=== PATIENT | male | born 1985 | race Caucasian/White ===

== ENCOUNTER 2017-10-16 12:03 | Emergency (ER) | payer OTHER ==
[2017-10-16] MEDS ORDERED: IPRATROPIUM-ALBUTEROL 3 ML NEB INHALATION STA (12:08)
[2017-10-16 12:10] VITALS: RESP 18
--- NOTE | 2017-10-16 12:38 | ED ---
General Adult HPI - General Stated complaint: overdose Time Seen by Provider: 10/16/17 12:08 Source: patient, EMS Mode of arrival: EMS Limitations: no limitations - History of Present Illness Initial comments: 31-year-old male presents emergency Department chief complaint of heroin overdose. Patient uses heroin states that he recently got a rehab. Patient states that he has overdose in the past and has Narcan but he did not have any. There was another person the house that the room in the shower to try to wake him up. Patient was given 2 mg Narcan by EMS 20 minutes prior arrival. Patient has no complaints at this time. Patient denies suicidal or homicidal ideation. Denies any physical complaints. Patient is a smoker and has asthma. - Related Data Home Medications Medication Instructions Recorded Confirmed No Known Home Medications 03/27/16 03/27/16 Allergies Allergy/AdvReac Type Severity Reaction Status Date / Time No Known Allergies Allergy Verified 03/27/16 13:17 Review of Systems ROS Statement: Those systems with pertinent positive or pertinent negative responses have been documented in the HPI. ROS Other: All systems not noted in ROS Statement are negative. Past Medical History Past Medical History: No Reported History History of Any Multi-Drug Resistant Organisms: None Reported Past Surgical History: No Surgical Hx Reported Past Psychological History: No Psychological Hx Reported Smoking Status: Current every day smoker Past Alcohol Use History: None Reported Past Drug Use History: Heroin General Exam General appearance: alert, in no apparent distress Head exam: Present: atraumatic, normocephalic, normal inspection Eye exam: Present: normal appearance, PERRL, EOMI. Absent: scleral icterus, conjunctival injection, periorbital swelling ENT exam: Present: normal exam, normal oropharynx, mucous membranes moist Neck exam: Present: normal inspection. Absent: tenderness, meningismus, lymphadenopathy Respiratory exam: Present: wheezes. Absent: normal lung sounds bilaterally, respiratory distress, rales, rhonchi, stridor Cardiovascular Exam: Present: regular rate, normal rhythm, normal heart sounds. Absent: systolic murmur, diastolic murmur, rubs, gallop, clicks Course Vital Signs 10/16/17 10/16/17 12:05 12:23 Temperature 100.4 F H Pulse Rate 95 84 Respiratory 18 18 Rate Blood Pressure 143/72 O2 Sat by Pulse 97 Oximetry Medical Decision Making - Medical Decision Making 31-year-old male presented from for heroin overdose. Patient has been monitored for 45 minutes and he was given Narcan 20 minutes prior arrival. Patient is stable has no complaints she was given a breathing treatment for his asthma. Patient is requesting discharge does understand risk of leaving at this time. Disposition Clinical Impression: Heroin overdose Disposition: HOME SELF-CARE Condition: Stable Instructions: Opioid Overdose (ED) Additional Instructions: Please return to the Emergency Department if symptoms worsen or any other concerns. Is patient prescribed a controlled substance at d/c from ED?: No Referrals: None,Stated [Primary Care Provider] - 1-2 days Time of Disposition: 12:38
[2017-10-16 12:42] VITALS: BP 136/59; PULSE 114; TEMP 97.9
== END 2017-10-16 12:44 | disposition home or self-care (01) ==
LOC: EC 12:03
DX: T40.1X1A Poisoning by heroin, accidental (unintentional), initial encounter (principal); J45.909 Unspecified asthma, uncomplicated; F17.200 Nicotine dependence, unspecified, uncomplicated
CPT/HCPCS: 94640; 99284

== ENCOUNTER 2017-12-29 16:06 | Inpatient (IN) | payer MEDICAID, OTHER ==
--- NOTE | 2017-12-29 16:23 | ED ---
General Adult HPI - General Chief complaint: Psychiatric Symptoms Stated complaint: mental health/hallucinations Time Seen by Provider: 12/29/17 16:06 Source: patient, RN notes reviewed Mode of arrival: ambulatory Limitations: no limitations - History of Present Illness Initial comments: This is a 32-year-old male with past medical history significant for one previous suicide attempt. Patient also admits to drinking heroin in the past and methamphetamine. Patient states he hasn't used any drugs last 2 days and hasn't drank last 2 days. Patient states his girlfriend was cheating on so over the last 2 days she's been thinking about killing himself and he doesn't think go on at this point without hurting himself. Patient would like to be admitted to psych [facility]. Patient denies any physical complaints today. Patient denies headache patient denies chest pain patient denies abdominal pain. Patient denies any recent fever chills or cough. - Related Data Home Medications Medication Instructions Recorded Confirmed Albuterol Inhaler [Ventolin Hfa 2 puff INHALATION RT-Q6H PRN 12/29/17 12/29/17 Inhaler] Allergies Allergy/AdvReac Type Severity Reaction Status Date / Time No Known Allergies Allergy Verified 12/29/17 16:15 Review of Systems ROS Statement: Those systems with pertinent positive or pertinent negative responses have been documented in the HPI. ROS Other: All systems not noted in ROS Statement are negative. Past Medical History Past Medical History: No Reported History History of Any Multi-Drug Resistant Organisms: None Reported Past Surgical History: No Surgical Hx Reported Past Psychological History: No Psychological Hx Reported Smoking Status: Current every day smoker Past Alcohol Use History: None Reported Past Drug Use History: Heroin General Exam - General Exam Comments Initial Comments: GENERAL: Patient is well-developed and well-nourished. Patient is nontoxic and well- hydrated and is in no acute distress. ENT: Neck is soft and supple. No significant lymphadenopathy is noted. Oropharynx is clear. Moist mucous membranes. Neck has full range of motion without eliciting any pain. EYES: The sclera were anicteric and conjunctiva were pink and moist. Extraocular movements were intact and pupils were equal round and reactive to light. Eyelids were unremarkable. PULMONARY: Unlabored respirations. Good breath sounds bilaterally. No audible rales rhonchi or wheezing was noted. CARDIOVASCULAR: There is a regular rate and rhythm without any murmurs gallops or rubs. Patient states he suicidal ABDOMEN: Soft and nontender with normal bowel sounds. No palpable organomegaly was noted. There is no palpable pulsatile mass. SKIN: Skin is clear with no lesions or rashes and otherwise unremarkable. NEUROLOGIC: Patient is alert and oriented x3. Cranial nerves II through XII are grossly intact. Motor and sensory are also intact. Normal speech, volume and content. Symmetrical smile. MUSCULOSKELETAL: Normal extremities with adequate strength and full range of motion. No lower extremity swelling or edema. No calf tenderness. LYMPHATICS: No significant lymphadenopathy is noted PSYCHIATRIC: Patient states she suicidal. Limitations: no limitations Course Vital Signs 12/29/17 16:09 Temperature 98.0 F Pulse Rate 74 Respiratory 20 Rate Blood Pressure 125/87 O2 Sat by Pulse 98 Oximetry Medical Decision Making - Lab Data Lab Results 12/29/17 Range/Units Unknown Urine Opiates Screen Not Detected (NotDetected) Ur Oxycodone Screen Not Detected (NotDetected) Urine Methadone Screen Not Detected (NotDetected) Ur Propoxyphene Screen Not Detected (NotDetected) Ur Barbiturates Screen Not Detected (NotDetected) U Tricyclic Antidepress Not Detected (NotDetected) Ur Phencyclidine Scrn Not Detected (NotDetected) Ur Amphetamines Screen Not Detected (NotDetected) U Methamphetamines Scrn Not Detected (NotDetected) U Benzodiazepines Scrn Not Detected (NotDetected) Urine Cocaine Screen Detected H (NotDetected) U Marijuana (THC) Screen Detected H (NotDetected) Disposition Clinical Impression: Depression, Suicidal ideation, Drug abuse Disposition: TRANSFER TO PSYCH HOSP/UNIT Referrals: None,Stated [Primary Care Provider] - 1-2 days Time of Disposition: 18:59
[2017-12-29 16:46] LABS: Amphetamine Screen,Urine Not Detected (NotDetected); Barbiturate Screen,Urine Not Detected (NotDetected); Benzodiazepines Screen,Urine Not Detected (NotDetected); Cocaine Screen,Urine Detected (NotDetected); Methadone Screen, Urine Not Detected (NotDetected); Opiate Screen,Urine Not Detected (NotDetected); Oxycodone Screen, Urine Not Detected (NotDetected); Phencyclidine Screen,Urine Not Detected (NotDetected); Tricyclic Antidepressant,Urine Not Detected (NotDetected); Urn Cannabinoid Scrn Detected (NotDetected)
[2017-12-29 21:28] LABS: Basophils % (A) 1 %; Eosinophils # (A) 0.3 k/uL (0-0.7); Eosinophils % (A) 5 %; HCT 44.5 % (39.0-53.0); HGB 15.5 gm/dL (13.0-17.5); Lymphocytes # (A) 2.6 k/uL (1.0-4.8); Lymphocytes % (A) 43 %; MCH 28.4 pg (25.0-35.0); MCHC 34.8 g/dL (31.0-37.0); MCV 81.6 fL (80.0-100.0); Mean Platelet Volume 6.5; Monocytes # (A) 0.3 k/uL (0-1.0); Monocytes % (A) 4 %; Neutrophils # (A) 2.7 k/uL (1.3-7.7); Neutrophils % (A) 44 %; Platelet Count 280 k/uL (150-450); RBC 5.45 m/uL (4.30-5.90); RDW 13.2 % (11.5-15.5); WBC 6.1 k/uL (3.8-10.6)
[2017-12-29 21:29] LABS: Amorphous Sediment,Urine Few /hpf; Appearance,Urine Turbid (Clear); Bilirubin,Urine Negative (Negative); Blood,Urine Negative (Negative); Color,Urine Yellow; Glucose,Urine (UA) Negative (Negative); Ketones,Urine Negative (Negative); Leukocyte Esterase,Urine Negative (Negative); Mucus,Urine Moderate /hpf; Nitrite,Urine Negative (Negative); PH, Urine 7.5 (5.0-8.0); Protein,Urine Trace (Negative); Specific Gravity,Urine 1.021 (1.001-1.035)
[2017-12-29 21:44] LABS: ALT 27 U/L (21-72); AST 24 U/L (17-59); Albumin 4.1 g/dL (3.5-5.0); Alkaline Phosphatase 50 U/L (38-126); Anion Gap 10 mmol/L; Blood Urea Nitrogen 17 mg/dL (9-20); Calcium 9.6 mg/dL (8.4-10.2); Carbon Dioxide 26 mmol/L (22-30); Chloride 105 mmol/L (98-107); Glucose 97 mg/dL (74-99); Potassium 4.1 mmol/L (3.5-5.1); Sodium 141 mmol/L (137-145); Total Protein 7.4 g/dL (6.3-8.2)
[2017-12-30] MEDS ORDERED: IPRATROPIUM-ALBUTEROL 3 ML NEB INHALATION STA (11:06)
[2017-12-30] MEDS ORDERED: ACETAMINOPHEN TAB 325 MG TAB PO PRN (15:05)
[2017-12-30] MEDS ORDERED: ZIPRASIDONE 20 MG VIAL IM PRN (15:05)
[2017-12-30] MEDS ORDERED: MAG HYDROX/AL HYDROX/SIMETH 30 ML CUP PO PRN (15:05)
[2017-12-30] MEDS ORDERED: MAGNESIUM HYDROXIDE 2,400 MG/10 ML CUP PO PRN (15:05)
[2017-12-30] MEDS ORDERED: LORazepam 1 MG TAB PO PRN (15:05)
[2017-12-30] MEDS ORDERED: LORazepam 2 MG/ML INJ IM PRN (15:08)
[2017-12-30 15:38] VITALS: BMI 25.0
--- NOTE | 2017-12-30 18:42 | P.CONS ---
History of Present Illness - Reason for Consult Consult date: 12/30/17 - Chief Complaint Depression - History of Present Illness Patient is a 32-year-old male with a past medical history of asthma, substance abuse, and depression (hx of one suicide attempt) presented to the ED due to concern that he may harm himself. The patient notes that he began using methamphetamine 10 days for the first time and used continuously for 7 days during which time he lost 17 lbs and found himself in dangerous situations. He last used on 12/27/17. He notes that his problems with his girlfriend were the trigger. He previously used heroin several years ago and notes that he doesn't use any other substances, drink alcohol or use tobacco. Patient notes his last asthma exacerbation was several years ago and he doesn't use any inhalers. He otherwise denied dizziness, headache, cough, chest pain, SOB, fever, nausea, vomiting, diarrhea, constipation, recent travel, or sick contacts. In the ED, the patient's urine drug screen tested positive for Cocaine and Marijuana, though the patient denied ever having used them. Review of Systems All pertinent positives and negatives as per HPI w/ remaining ROS performed and negative Past Medical History Past Medical History: Asthma History of Any Multi-Drug Resistant Organisms: None Reported Past Surgical History: No Surgical Hx Reported Past Anesthesia/Blood Transfusion Reactions: No Reported Reaction Past Psychological History: No Psychological Hx Reported Smoking Status: Current every day smoker Past Alcohol Use History: None Reported Past Drug Use History: Heroin, Marijuana, Methamphetamine Medications and Allergies Home Medications Medication Instructions Recorded Confirmed Type Albuterol Inhaler [Ventolin Hfa 2 puff INHALATION RT-Q6H PRN 12/29/17 12/29/17 History Inhaler] Allergies Allergy/AdvReac Type Severity Reaction Status Date / Time No Known Allergies Allergy Verified 12/29/17 16:15 Physical Exam Vitals: Vital Signs Temp Pulse Pulse Resp BP BP Pulse Ox 12/30/17 15:33 97.1 F L 75 18 112/75 12/30/17 13:40 72 18 105/58 98 12/30/17 12:55 97.9 F 12/30/17 11:34 68 12/30/17 11:25 64 12/30/17 07:32 64 18 108/64 98 Intake and Output 12/30/17 12/30/17 12/30/17 06:59 14:59 22:59 Other: Weight 72.348 kg General: non toxic, no distress, appears at stated age, normal weight Derm: no unusual rashes/lesions no unusual ecchymoses, warm, dry Head: atraumatic, normocephalic, symmetric Eyes: Strabismus, no lid lag, anicteric sclera, pupils equal round reactive to light ENT: Nose and ears atraumatic, no thrush, no pharyngeal erythema Neck: No thyromegaly, no cervical lymphadenopathy, trachea midline, supple Mouth: no lip lesion, mucus membranes moist Cardiovascular: S1S2 reg, no murmur, positive posterior tibial pulse bilateral, no edema, capillary refill less than 2 seconds Lungs: CTA bilateral, no rhonchi, no rales , no accessory muscle use Abdominal: soft, nontender to palpation, no guarding, no appreciable organomegaly, normal bowel sounds Ext: no gross muscle atrophy, muscle strength 5 out of 5 in all 4 extremities grossly, no contractures, Neuro: CN II-XI grossly intact, light touch intact all 4 extremities, finger to nose within normal limits, Psych: Alert, oriented, appropriate affect Results CBC & Chem 7: 12/29/17 20:53 12/29/17 20:53 Labs: Abnormal Lab Results - Last 24 Hours (Table) 12/29/17 Range/Units Unknown Urine Protein Trace H (Negative) Amorphous Sediment Few H (None) /hpf Urine Mucus Moderate H (None) /hpf Assessment and Plan Plan: Substance abuse - Methamphetamine, Cocaine, Marijuana, alcohol use - Place patient on [facility] protocol - Monitor for signs of withdrawal - Ativan prn Depression - Treatment as per psych Low risk for DVT since patient is ambulatory. Thank you for allowing us to participate in the care of this patient. We will follow peripherally. Do not hesitate to contact us with questions. Someone can be reached from the [facility] hospitalist group at all hours of the day at [phone].
[2017-12-31] MEDS ORDERED: NICOTINE 21MG/24HR PATCH TRANSDERM SCH (09:00)
[2017-12-31] MEDS: ALBUTEROL INHALER 60 PUFF/8 GM INHALER INHALATION PRN (09:13)
--- NOTE | 2017-12-31 13:53 | P.HP ---
Psychiatric H&P - . H&P Date: 12/31/17 History & Physical: IDENTIFYING DATA: Ji is a 32-year-old single [place]ian male admitted to psychiatric unit voluntarily. HISTORY OF PRESENT ILLNESS: His sponsor brought him to emergency room concerned about recent relapse to methamphetamine, suicidal ideation and a plan to overdose on drugs. He relapsed last month when he discovered that his girlfriend had an affair. 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 When he returned home he is discovered the affair. He left their home to live with a friend with the intention of using heroin. He stated that neither he nor his friend could find heroin and began using methamphetamine instead. He was injecting methamphetamine "about twice a day" until earlier this week. He spoke to his Narcotics Anonymous sponsor and discussed his relapse, depression and thoughts of suicide. He continues to feel helpless and hopeless and distressed over the breakup of relationship. He feels guilty and ruminates over his past errors. He stated that he is angry and disappointed with his girlfriend but understands her behavior. He talked about having an affair himself when they had briefly year ago. He described thoughts of suicide but denied intent or plan. He described early, middle and late insomnia, difficulty with concentration and attention, and persistent tension and nervousness and lack of appetite. He ruminates about the relationship, her infertility and her future. He did not express to obsessions or compulsions. He denied a history of elevated mood or sustained irritability outside of substance abuse consistent with cici or hypomania. He denied psychotic symptoms such as hallucinations or thought disturbances. He denied feelings of suspiciousness and paranoia. PAST PSYCHIATRIC HISTORY: He had one prior psychiatric admission to the [facility] in [place] 2003 following a suicide attempt. He alleged she was diagnosed with a "bipolar depression". He stopped treatment after the of his mother in 2005. PAST MEDICAL HISTORY: He denied history of major medical illnesses. Has a history of heroin overdoses including 2 admissions to our emergency room for the treatment of heroin and overdose. His BAL on presentation to the ER was 0. His UDS was positive for cocaine and marijuana. ALLERGIES: NO KNOWN DRUG ALLERGIES. SUBSTANCE USE HISTORY:. He started using marijuana in adolescence. He stated that he only used marijuana until the overdose of his mother. After his mother he began using Vicodin and other oral opiate medications. He he progressed to heroin and has been heroin injecting heroin since approximately 2007. He had one brief residential treatment at [facility]. He is involved in outpatient substance abuse treatment, and Narcotics Anonymous. He has a sponsor in Narcotics Anonymous. He has used other drugs including alcohol, cocaine and methamphetamine but identifies as heroin as his primary drug of choice. He has been abstinent from heroin for about one year. He has not been involved in a methadone treatment program or prescribe Suboxone for the treatment of heroin dependence. FAMILY PSYCHIATRIC/SUBSTANCE USE HISTORY: Both his mother and father had history of substance use problems. His mother from a heroin overdose. His father had history of abuse of alcohol, heroin and cocaine. LEGAL HISTORY: He is not on probation, parole or has pending charges. He is had past felony charges for breaking and entry, an armed robbery and larceny. He was in jail on 2 occasions. SOCIAL HISTORY: He was born and raised in [facility]. His mother was [place] his father was . He had one brother and one sister. His brother was murdered in 2000. His mother and father had history of substance use problems. He is single and has no children. He is close to a sister and his nephews. He is employed with a construction company. MENTAL STATUS EXAM: He presented as a casually groomed then balding 32-year-old [place]ian male. He made eye contact and attended to the interview. He had multiple tattoos and a "lazy" right eye. He had a anxious facial expression. He was alert and oriented to person, place and time. He showed psychomotor retardation but no abnormal movements. He had a slow but steady gait. His speech was spontaneous with normal rate, rhythm and volume. He had no articulation difficulties. His affect was dysphoric consisting of mixture of anxiety, depression and anger. His affect was appropriate and controlled. He denied current suicidal ideation or wishes. He denied homicidal ideation. He denied such depressive cognitions as hopelessness, helplessness and worthlessness. He ruminated about his girlfriend's infidelity and is relapsed to use of drugs. He did not express phobias, ideas reference, paranoid ideation or delusions. His thinking was abstract and associations were coherent, logical and goal directed. He did not demonstrate clang associations, delusions or paranoid ideation. He denied hallucinations and did not appear to be responding to internal stimuli. Global impression of intellect is average. He is aware of his illness and need for mental health and substance use treatment. STRENGTHS: Good physical health, stable employment, involvement with Narcotics Anonymous, able to maintain long-term stable relationships. WEAKNESSES: Substance use problems, recent breakup of long-term relationship. IMPRESSION: Is a 32-year-old single [place]ian male who presented to the emergency room with complaints of suicidal ideation the context of a breakup of a long-term relationship a relapse to drugs. He has a long history of a opiate use disorder and has been abstinent from heroin for about one year. He relapsed to methamphetamine and cocaine after breakup of a long-term relationship. He complains of feeling depressed and has some symptoms of a depressive disorder. The mood state may be related to the recent use and recovery from methamphetamine and cocaine but also may be due to an independent mood disorder. There is no history suggestive of cici or hypomania. There is no evidence of psychosis. He should be treated briefly an inpatient basis and then transition to outpatient mental health and substance abuse treatment. PRINCIPLE DIAGNOSIS: Unspecified depressive disorder, methamphetamine use disorder, cocaine use disorder, heroin use disorder, rule out major depressive disorder RECOMMENDATION: Admitted to the psychiatric unit. Safety precautions. Consult medicine for initial physical exam and medical history. emergency worker completed initial psychosocial assessment. Begin Zoloft 50 mg daily and titrated according to clinical response and tolerance. Discuss aftercare services including interest and/or motivation for substance abuse treatment services. Encourage participation in therapeutic groups and activities. Evaluate clinical status response to treatment daily basis. Allergies Allergy/AdvReac Type Severity Reaction Status Date / Time No Known Allergies Allergy Verified 12/29/17 16:15 Vital Signs Temp 97.1 F L 12/30/17 15:33 Pulse 53 L 12/31/17 07:07 Resp 18 12/31/17 07:07 BP 108/59 12/31/17 07:07 Pulse Ox 97 12/31/17 07:07 Intake & Output 12/30/17 12/31/17 12/31/17 18:59 06:59 18:59 Weight 72.348 kg Laboratory Last Values WBC 6.1 k/uL (3.8-10.6) 12/29/17 20:53 RBC 5.45 m/uL (4.30-5.90) 12/29/17 20:53 Hgb 15.5 gm/dL (13.0-17.5) 12/29/17 20:53 Hct 44.5 % (39.0-53.0) 12/29/17 20:53 MCV 81.6 fL (80.0-100.0) 12/29/17 20:53 MCH 28.4 pg (25.0-35.0) 12/29/17 20:53 MCHC 34.8 g/dL (31.0-37.0) 12/29/17 20:53 RDW 13.2 % (11.5-15.5) 12/29/17 20:53 Plt Count 280 k/uL (150-450) 12/29/17 20:53 Neutrophils % 44 % 12/29/17 20:53 Lymphocytes % 43 % 12/29/17 20:53 Monocytes % 4 % 12/29/17 20:53 Eosinophils % 5 % 12/29/17 20:53 Basophils % 1 % 12/29/17 20:53 Neutrophils # 2.7 k/uL (1.3-7.7) 12/29/17 20:53 Lymphocytes # 2.6 k/uL (1.0-4.8) 12/29/17 20:53 Monocytes # 0.3 k/uL (0-1.0) 12/29/17 20:53 Eosinophils # 0.3 k/uL (0-0.7) 12/29/17 20:53 Basophils # 0.0 k/uL (0-0.2) 12/29/17 20:53 Sodium 141 mmol/L (137-145) 12/29/17 20:53 Potassium 4.1 mmol/L (3.5-5.1) 12/29/17 20:53 Chloride 105 mmol/L (98-107) 12/29/17 20:53 Carbon Dioxide 26 mmol/L (22-30) 12/29/17 20:53 Anion Gap 10 mmol/L 12/29/17 20:53 BUN 17 mg/dL (9-20) 12/29/17 20:53 Creatinine 0.83 mg/dL (0.66-1.25) 12/29/17 20:53 Est GFR (CKD-EPI)AfAm >90 (>60 ml/min/1.73 sqM) 12/29/17 20:53 Est GFR (CKD-EPI)NonAf >90 (>60 ml/min/1.73 sqM) 12/29/17 20:53 Glucose 97 mg/dL (74-99) 12/29/17 20:53 Calcium 9.6 mg/dL (8.4-10.2) 12/29/17 20:53 Total Bilirubin 1.0 mg/dL (0.2-1.3) 12/29/17 20:53 AST 24 U/L (17-59) 12/29/17 20:53 ALT 27 U/L (21-72) 12/29/17 20:53 Alkaline Phosphatase 50 U/L (38-126) 12/29/17 20:53 Total Protein 7.4 g/dL (6.3-8.2) 12/29/17 20:53 Albumin 4.1 g/dL (3.5-5.0) 12/29/17 20:53 Urine Color Yellow 12/29/17 Unknown Urine Appearance Turbid (Clear) 12/29/17 Unknown Urine pH 7.5 (5.0-8.0) 12/29/17 Unknown Ur Specific [place] 1.021 (1.001-1.035) 12/29/17 Unknown Urine Protein Trace (Negative) H 12/29/17 Unknown Urine Glucose (UA) Negative (Negative) 12/29/17 Unknown Urine Ketones Negative (Negative) 12/29/17 Unknown Urine Blood Negative (Negative) 12/29/17 Unknown Urine Nitrite Negative (Negative) 12/29/17 Unknown Urine Bilirubin Negative (Negative) 12/29/17 Unknown Urine Urobilinogen 8.0 mg/dL (<2.0) 12/29/17 Unknown Ur Leukocyte Esterase Negative (Negative) 12/29/17 Unknown Amorphous Sediment Few /hpf (None) H 12/29/17 Unknown Urine Mucus Moderate /hpf (None) H 12/29/17 Unknown Urine Opiates Screen Not Detected (NotDetected) 12/29/17 Unknown Ur Oxycodone Screen Not Detected (NotDetected) 12/29/17 Unknown Urine Methadone Screen Not Detected (NotDetected) 12/29/17 Unknown Ur Propoxyphene Screen Not Detected (NotDetected) 12/29/17 Unknown Ur Barbiturates Screen Not Detected (NotDetected) 12/29/17 Unknown U Tricyclic Antidepress Not Detected (NotDetected) 12/29/17 Unknown Ur Phencyclidine Scrn Not Detected (NotDetected) 12/29/17 Unknown Ur Amphetamines Screen Not Detected (NotDetected) 12/29/17 Unknown U Methamphetamines Scrn Not Detected (NotDetected) 12/29/17 Unknown U Benzodiazepines Scrn Not Detected (NotDetected) 12/29/17 Unknown Urine Cocaine Screen Detected (NotDetected) H 12/29/17 Unknown U Marijuana (THC) Screen Detected (NotDetected) H 12/29/17 Unknown 12/31/17 09:40 12/31/17 13:49
[2017-12-31 17:55] LABS: Hemoglobin A1C 5.4 % (4.0-6.0)
[2017-12-31] MEDS: SYMBICORT 160-4.5 MCG INHALER INHALATION SCH (22:06)
[2018-01-01 06:41] VITALS: TEMP 97.9
[2018-01-01] MEDS: ALBUTEROL INHALER 60 PUFF/8 GM INHALER INHALATION PRN ×2 (09:52→20:37)
[2018-01-01] MEDS: SYMBICORT 160-4.5 MCG INHALER INHALATION SCH ×2 (09:52→20:37)
--- NOTE | 2018-01-01 10:22 | P.PN ---
Subjective Progress Note Date: 01/01/18 Principal diagnosis: He continues to feel helpless and hopeless and distressed over the breakup of relationship. He feels guilty and ruminates over his past errors. He stated that he is angry and disappointed with his girlfriend but understands her behavior. He talked about having an affair himself when they had briefly year ago. He described thoughts of suicide but denied intent or plan. He described early, middle and late insomnia, difficulty with concentration and attention, and persistent tension and nervousness and lack of appetite. He ruminates about the relationship, her infertility and her future. He did not express to obsessions or compulsions. He denied a history of elevated mood or sustained irritability outside of substance abuse consistent with cici or hypomania. He denied psychotic symptoms such as hallucinations or thought disturbances. He denied feelings of suspiciousness and paranoia. PRINCIPLE DIAGNOSIS: Unspecified depressive disorder, methamphetamine use disorder, cocaine use disorder, heroin use disorder, rule out major depressive disorder RECOMMENDATION: Admitted to the psychiatric unit. Safety precautions. Consult medicine for initial physical exam and medical history. liner worker completed initial psychosocial assessment. Begin Zoloft 50 mg daily and titrated according to clinical response and tolerance. Discuss aftercare services including interest and/or motivation for substance abuse treatment services. Encourage participation in therapeutic groups and activities. Evaluate clinical status response to treatment daily basis.Will add Revia 50 mg po qhs to decrease craving. Intellectual:average DENTIFYING DATA: Ji is a 32-year-old single [place] male admitted to psychiatric unit voluntarily. HISTORY OF PRESENT ILLNESS: His sponsor brought him to emergency room concerned about recent relapse to methamphetamine, suicidal ideation and a plan to overdose on drugs. He relapsed last month when he discovered that his girlfriend had an affair. 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 When he returned home he is discovered the affair. He left their home to live with a friend with the intention of using heroin. He stated that neither he nor his friend could find heroin and began using methamphetamine instead. He was injecting methamphetamine "about twice a day" until earlier this week. He spoke to his Narcotics Anonymous sponsor and discussed his relapse, depression and thoughts of suicide. Today feels more energetic and wants to get better. Objective - Vital Signs Vital signs: Vital Signs Temp 97.9 F 01/01/18 06:29 Pulse 52 L 01/01/18 06:29 Resp 16 01/01/18 06:29 BP 111/58 01/01/18 06:29 Pulse Ox 97 12/31/17 07:07 - Labs CBC & Chem 7: 12/29/17 20:53 12/29/17 20:53
[2018-01-02 06:43] VITALS: BP 115/57; PULSE 78; RESP 18
[2018-01-02] MEDS: SYMBICORT 160-4.5 MCG INHALER INHALATION SCH (10:17)
[2018-01-03] MEDS ORDERED: SERTRALINE 25 MG TAB PO SCH (20:00)
[2018-01-05] MEDS ORDERED: NALTREXONE HCL 50 MG TAB PO SCH (20:00)
== END 2018-01-02 10:22 | disposition home or self-care (01) | DRG 881 ==
LOC: EC 16:06 → 3MHU 12-30 14:53
PROVIDERS: ADMIT Psychiatry & Neurology Psychiatry; ATTEND Psychiatry & Neurology Psychiatry
DX: F32.9 Major depressive disorder, single episode, unspecified (principal); R45.851 Suicidal ideations; R44.3 Hallucinations, unspecified; F11.10 Opioid abuse, uncomplicated; F14.10 Cocaine abuse, uncomplicated; F15.10 Other stimulant abuse, uncomplicated; G47.09 Other insomnia; F17.200 Nicotine dependence, unspecified, uncomplicated; Z91.5 Personal history of self-harm; Z87.09 Personal history of other diseases of the respiratory system
CPT/HCPCS: 36415; 80053; 80061; 80306; 81001; 82075; 83036; 84443; 85025; 94640; 99285